=== PATIENT | male | born 1970 | race Caucasian/White ===

== ENCOUNTER 2021-07-04 14:20 | Outpatient (CLI) | payer OTHER, SELFPAY ==
[2021-07-04 14:34] LABS: Basophils Absolute Auto 0.05 K/mm3 (0.00-0.10); Basophils Percent Auto 0.7 % (0.0-1.0); Eosinophils Absolute Auto 0.21 K/mm3 (0.02-0.50); Eosinophils Percent Auto 2.9 % (1.0-6.0); Hematocrit 45.6 % (40.0-54.0); Hemoglobin 15.1 g/dL (14.0-18.0); Immature Granulocyte Absolute 0.03 K/mm3 (0.00-0.00); Immature Granulocyte Percent A 0.4 % (0.0-0.0); Lymphocytes Absolute Auto 2.39 K/mm3 (1.10-4.50); Lymphocytes Percent Auto 32.5 % (18.0-42.0); Mean Corpuscular HGB Conc 33.1 g/dL (32.0-36.0); Mean Corpuscular Hemoglobin 29.3 pg (27.0-31.0); Mean Corpuscular Volume 88.5 fL (78.0-102.0); Mean Platelet Volume 9.7 fl (8.7-11.0); Monocytes Absolute Auto 0.56 K/mm3 (0.10-0.90); Monocytes Percent Auto 7.6 % (2.0-11.0); Neutrophils Absolute Auto 4.1 K/mm3 (1.7-7.2); Neutrophils Percent Auto 55.9 % (50.0-70.0); Platelet Count Result 281 K/mm3 (150-420); Red Blood Count 5.15 M/mm3 (4.70-6.10); Red Cell Distribution Width 12.5 % (11.6-14.4); White Blood Count 7.4 K/mm3 (4.8-10.8)
[2021-07-04 14:54] LABS: Alanine Aminotransferase 26 U/L (16-63); Albumin Level 4.1 g/dL (3.4-5.0); Alkaline Phosphatase 102 U/L (46-116); Anion Gap 7 mmol/L (8-16); Aspartate Amino Transferase 16 U/L (15-37); Bilirubin,Total 0.3 mg/dL (0.00-1.00); Blood Urea Nitrogen 20 mg/dL (7-18); Calcium 8.5 mg/dL (8.5-10.1); Carbon Dioxide 29 mmol/L (21-32); Chloride 102 mmol/L (98-108); Cholesterol 211 mg/dL (0-200); Estimated Glomerular Filt Rate > 60; Glucose 140 mg/dL (70-99); HDL Direct 35 mg/dL (40-60); LDL Cholesterol Calculated 125 mg/dL (<130); Osmolality Calculated 290 mOsm/kg (285-295); Potassium 4.1 mmol/L (3.5-5.1); Sodium 138 mmol/L (136-145); Total Protein 7.4 g/dL (6.4-8.2); Triglycerides 254 mg/dL (0-150)
== END 2021-07-04 14:21 | disposition home or self-care (01) ==
LOC: CHSLAB 14:24
PROVIDERS: PCP Nurse Practitioner Family; Visit Provider Nurse Practitioner Family
DX: I10 Essential (primary) hypertension (principal)
CPT/HCPCS: 36415; 80053; 80061; 85025

== ENCOUNTER 2023-04-20 08:44 | Outpatient (CLI) | payer OTHER, SELFPAY ==
[2023-04-20 10:35] LABS: Basophils Absolute Auto 0.03 K/mm3 (0.00-0.10); Basophils Percent Auto 0.5 % (0.0-1.0); Eosinophils Absolute Auto 0.16 K/mm3 (0.02-0.50); Eosinophils Percent Auto 2.8 % (1.0-6.0); Hematocrit 43.9 % (40.0-54.0); Hemoglobin 14.7 g/dL (14.0-18.0); Immature Granulocyte Absolute 0.01 K/mm3 (0.00-0.00); Immature Granulocyte Percent A 0.2 % (0.0-0.0); Lymphocytes Absolute Auto 2.04 K/mm3 (1.10-4.50); Mean Corpuscular HGB Conc 33.5 g/dL (32.0-36.0); Mean Corpuscular Hemoglobin 28.9 pg (27.0-31.0); Mean Corpuscular Volume 86.2 fL (78.0-102.0); Mean Platelet Volume 10.2 fl (8.7-11.0); Monocytes Absolute Auto 0.48 K/mm3 (0.10-0.90); Monocytes Percent Auto 8.5 % (2.0-11.0); Platelet Count Result 279 K/mm3 (150-420); Red Blood Count 5.09 M/mm3 (4.70-6.10); Red Cell Distribution Width 11.9 % (11.6-14.4); White Blood Count 5.7 K/mm3 (4.8-10.8)
[2023-04-20 10:46] LABS: Alanine Aminotransferase 37 U/L (16-63); Albumin Level 3.9 g/dL (3.4-5.0); Alkaline Phosphatase 108 U/L (46-116); Anion Gap 8 mmol/L (8-16); Aspartate Amino Transferase 18 U/L (15-37); Bilirubin,Total 0.7 mg/dL (0.00-1.00); Blood Urea Nitrogen 16 mg/dL (7-18); Calcium 8.4 mg/dL (8.5-10.1); Carbon Dioxide 30 mmol/L (21-32); Chloride 102 mmol/L (98-108); Cholesterol 160 mg/dL (0-200); Estimated Glomerular Filt Rate > 60; Glucose 124 mg/dL (70-99); HDL Direct 43 mg/dL (40-60); LDL Cholesterol Calculated 88 mg/dL (<130); Osmolality Calculated 292 mOsm/kg (285-295); Potassium 4.7 mmol/L (3.5-5.1); Sodium 140 mmol/L (136-145); Total Protein 6.7 g/dL (6.4-8.2); Triglycerides 145 mg/dL (0-150)
== END 2023-04-20 08:45 | disposition home or self-care (01) ==
LOC: CHSLAB 08:46
PROVIDERS: PCP Nurse Practitioner Family; Visit Provider Nurse Practitioner Family
DX: E11.9 Type 2 diabetes mellitus without complications (principal); E78.5 Hyperlipidemia, unspecified; I10 Essential (primary) hypertension
CPT/HCPCS: 36415; 80053; 80061; 83036; 85025

== ENCOUNTER 2024-08-21 07:13 | Day surgery (SDC) | payer OTHER, SELFPAY ==
[2024-06-15 14:57] VITALS: BMI 27.5
[2024-08-21 07:52] VITALS: BMI 27.0
[2024-08-21 07:55] VITALS: BP 146/89; PULSE 62; RESP 16; TEMP 36.4; O2SAT 100
--- NOTE | 2024-08-21 08:45 | P.PNAN_ITS ---
Anes - Eval Pre Procedure Procedure: Operation Date: 08/21/24 09:00 Proposed Procedures p Diagnostic Colonoscopy - Ramirez Dillon DO Date/Time: 08/21/24 08:45 Pre Op Diagnosis: Other Fecal Abnormalities Patient Data Age: 54 Gender: M Height: 1.83 m Weight: 90.45 kg Last Vital Signs Temp 97.6 F 08/21/24 07:55 Pulse 62 08/21/24 07:55 Resp 16 08/21/24 07:55 BP 146/89 H 08/21/24 07:55 Pulse Ox 100 08/21/24 07:55 O2 Del Method Room Air 08/21/24 07:55 Allergies Allergy/AdvReac Type Severity Reaction Status Date / Time No Known Allergies Allergy Verified 08/07/24 10:47 Home Medications ?Medication ?Instructions ?Recorded ?Confirmed ?Type amlodipine 10 mg tablet See Rx Instructions .Route 06/01/24 08/21/24 Rx .COMPLEX #90 tabs atorvastatin 40 mg tablet See Rx Instructions .Route 06/01/24 08/21/24 Rx .COMPLEX #90 tabs lisinopril 10 mg tablet See Rx Instructions .Route 06/01/24 08/21/24 Rx .COMPLEX #90 tabs Patient hx anesthesia problems: none Family hx anesthesia problems: none Results Review: All pre-operative results and documents have been reviewed as part of the pre- operative evaluation. [facility] Past Medical History Medical History Cholecystectomy planned Family History Family History Mother Family history of type 2 diabetes mellitus Social History Social History Smoking status: Current some day smoker Tobacco type: cigarettes Additional smoking assessment comments: socially, maybe 6 per week Alcohol intake: current Drinks per week: 4 Alcohol use details: social Substance use: never Substance use type: does not use Living arrangements: with family Occupation/Education: occupation Additional occupation/education comments: [employer] Comments Asa 2 Exam Day of Procedure 08/21/24 08:45 Heart: regular rate and rhythm Lungs: clear to auscultation Airway: Mallampati scale class II Neurological: alert and oriented
--- NOTE | 2024-08-21 08:47 | P.PNAN_ITS ---
Anes - Eval Pre Procedure Procedure: Operation Date: 08/21/24 09:00 Proposed Procedures p Diagnostic Colonoscopy - Ramirez Dillon DO Date/Time: 08/21/24 08:47 Pre Op Diagnosis: Other Fecal Abnormalities Patient Data Age: 54 Gender: M Height: 1.83 m Weight: 90.45 kg Last Vital Signs Temp 97.6 F 08/21/24 07:55 Pulse 62 08/21/24 07:55 Resp 16 08/21/24 07:55 BP 146/89 H 08/21/24 07:55 Pulse Ox 100 08/21/24 07:55 O2 Del Method Room Air 08/21/24 07:55 Allergies Allergy/AdvReac Type Severity Reaction Status Date / Time No Known Allergies Allergy Verified 08/07/24 10:47 Home Medications ?Medication ?Instructions ?Recorded ?Confirmed ?Type amlodipine 10 mg tablet See Rx Instructions .Route 06/01/24 08/21/24 Rx .COMPLEX #90 tabs atorvastatin 40 mg tablet See Rx Instructions .Route 06/01/24 08/21/24 Rx .COMPLEX #90 tabs lisinopril 10 mg tablet See Rx Instructions .Route 06/01/24 08/21/24 Rx .COMPLEX #90 tabs Patient hx anesthesia problems: none Family hx anesthesia problems: none Results Review: All pre-operative results and documents have been reviewed as part of the pre- operative evaluation. [facility] Past Medical History Medical History Cholecystectomy planned Family History Family History Mother Family history of type 2 diabetes mellitus Social History Social History Smoking status: Current some day smoker Tobacco type: cigarettes Additional smoking assessment comments: socially, maybe 6 per week Alcohol intake: current Drinks per week: 4 Alcohol use details: social Substance use: never Substance use type: does not use Living arrangements: with family Occupation/Education: occupation Additional occupation/education comments: [employer] Exam Day of Procedure 08/21/24 08:47
--- NOTE | 2024-08-21 08:54 | P.HP_ITS ---
H&P: HPI History of Present Illness Date/Time: 08/21/24 08:54 Chief Complaint: + cologuard Narrative: 54 yo man presents for colonoscopy. He has never had one before. Denies hematochezia/melena. He had a cologuard test which was positive. Denies fam hx colon cancer but has parents who had polyps removed. Review of Systems Review of Systems: All systems reviewed & are unremarkable except as noted in HPI and below Constitutional: Constitutional: Denies chills, Denies fever(s), Denies headache(s) and Denies weight loss Eyes: Eyes: Denies change in vision ENT: Denies dizziness, Denies headache(s), Denies neck mass and Denies throat swelling Cardiovascular: Cardiovascular: Denies chest pain, Denies lightheadedness and Denies dyspnea Respiratory: Respiratory: Denies cough, Denies dyspnea and Denies wheezing Gastrointestinal: Gastrointestinal: Denies abdominal pain, Denies change in bowel habits, Denies nausea and Denies vomiting Genitourinary: Genitourinary: Denies hematuria and Denies dysuria Musculoskeletal: Musculoskeletal: Reports as per HPI Integumentary/Breasts: Skin/Breast: Reports as per HPI Neurologic: Denies dizziness and Denies headache(s) Allergic/Immunologic: Allergic/Immunologic: Denies throat swelling and Denies wheezing [facility] Past Medical History Medical History Cholecystectomy planned Family History Family History Mother Family history of type 2 diabetes mellitus Social History Social History Smoking status: Current some day smoker Tobacco type: cigarettes Additional smoking assessment comments: socially, maybe 6 per week Alcohol intake: current Drinks per week: 4 Alcohol use details: social Substance use: never Substance use type: does not use Living arrangements: with family Occupation/Education: occupation Additional occupation/education comments: [employer] Meds Home Medications and Allergies Home Medications ?Medication ?Instructions ?Recorded ?Confirmed ?Type amlodipine 10 mg tablet See Rx Instructions .Route 06/01/24 08/21/24 Rx .COMPLEX #90 tabs atorvastatin 40 mg tablet See Rx Instructions .Route 06/01/24 08/21/24 Rx .COMPLEX #90 tabs lisinopril 10 mg tablet See Rx Instructions .Route 06/01/24 08/21/24 Rx .COMPLEX #90 tabs Allergies Allergy/AdvReac Type Severity Reaction Status Date / Time No Known Allergies Allergy Verified 08/07/24 10:47 Vital Signs Vital Signs - 24 hr 08/21/24 07:55 Temperature 97.6 F Pulse Rate 62 Respiratory Rate 16 Blood Pressure 146/89 H Pulse Oximetry 100 Oxygen Delivery Room Air Exam Const: General: no acute distress and alert Orientation/consciousness: patient oriented x3 HENMT: Head: normocephalic and atraumatic Ears: hearing grossly normal bilaterally Face/Nose/Sinus: Normal nares present Mouth: Yes Normal oral and palatal mucosa present Eyes: Periorbital: periorbital findings normal Sclera: sclerae normal EOM: EOMs intact bilaterally Neck: Neck: normal visual inspection, no lymphadenopathy and trachea midline Chest: Chest palpation & inspection: normal inspection of the chest Resp: Effort & Inspection: normal respiratory effort Auscultation: clear to auscultation bilaterally Cardio: Jugular venous distension: no JVD Rate: regular rate Rhythm: regular rhythm Heart sounds: S1 normal heart sound present and S2 normal heart sound present Peripheral pulses: Peripheral pulses 2+ throughout GI: Inspection: normal to inspection GI Palp: Yes Soft to palpation, No Tenderness to palpation present (GI), No Guarding due to palpation present (GI) and No Rebound tenderness present Percussion: Yes normal to percussion Auscultation: normal bowel sounds : General: Yes no CVA tenderness Back/Spine/Pelvis: Back: no CVA tenderness Neuro: General: patient oriented x3, no focal motor deficits and CN's II-XI intact bilaterally Cognition (Neuro): normal cognition Speech: normal speech Motor exam (neuro): 5/5 motor strength present throughout Extrem: General: capillary refill normal and no clubbing, cyanosis or edema Assessment and Plan Assessment and plan (1) Positive colorectal cancer screening using Cologuard test: Code(s): R19.5 - Other fecal abnormalities Status: Acute Assessment and Plan: I have recommended colonoscopy. I have discussed the procedure, risks, benefits, and alternatives. Questions were answered. Patient is agreeable to proceed.
[2024-08-21] MEDS: LACTATED RINGERS 1,000 ML 30 ML IV CONT (08:58)
[2024-08-21 09:32] VITALS: BP 111/73; PULSE 60; RESP 16; O2SAT 99
--- NOTE | 2024-08-21 09:40 | WPDANESPN ---
Anes - Prog Note Post-Op Date/Time: 08/21/24 09:40 Vital Signs: Last Vital Signs Temp 97.6 F 08/21/24 07:55 Pulse 60 08/21/24 09:32 Resp 16 08/21/24 09:32 BP 111/73 08/21/24 09:32 Pulse Ox 99 08/21/24 09:32 O2 Del Method Room Air 08/21/24 09:32 Pain Score (VAS): NO I/O: Intake & Output 08/20/24 08/21/24 08/21/24 23:59 07:59 15:59 Intake Total 400 Balance 400 Patient Feedback: Patient satisfied with anesthetic care.
[2024-08-21 09:42] VITALS: BP 125/85; PULSE 52; RESP 18; O2SAT 99
[2024-08-21 09:52] VITALS: BP 121/81; PULSE 50; RESP 16; O2SAT 100
== END 2024-08-21 09:59 | disposition home or self-care (01) ==
PROVIDERS: PCP Nurse Practitioner Family; Visit Provider Surgery
PROC: 0DJD8ZZ Inspection of Lower Intestinal Tract, Via Natural or Artificial Opening Endoscopic (ICD-10-PCS; CPT 45378; principal; 2024-08-21 09:00)
DX: R19.5 Other fecal abnormalities (principal); K63.5 Polyp of colon
CPT/HCPCS: 45385

== ENCOUNTER 2024-08-21 08:56 | Outpatient (NON) | payer OTHER, SELFPAY ==
--- NOTE | 2024-08-21 | S_PTH ---
PAT[facility]: [facility]i Anglin [id number] AGE/SX: 54/M ROOM: RE08/21/[address]: Ramirez Dillon DO : 1970 BED: DIS: 08/21/2024 SPEC #: [id number] RECD: 08/22/24 09:57 STATUS: AMELIA REQ #: [id number] AVRIL: 08/21/24 00:[address]: Ramirez Dillon DEPT: [facility] Surgical RECD BY: Vale Luz ENTERED: 08/22/24 09:58 SP TYPE: Surgical OTHR DR: Suzi Maher, EXTENSION WORKER Tissues: A - Colon Polypectomy Procedures: Hematoxylin and Eosin Stain Gross and Microscopic Level 4
== END 2024-08-21 08:57 | disposition home or self-care (01) ==
PROVIDERS: PCP Nurse Practitioner Family; Visit Provider Surgery
DX: R19.5 Other fecal abnormalities (principal)
CPT/HCPCS: 88305